=== PATIENT | male | born 1960 | race Caucasian/White ===

== ENCOUNTER 2025-05-20 00:29 | Inpatient (IN) | payer MEDICARE, OTHER ==
[~2025-05-20] VITALS: Ht 177.8 cm; Wt 113.7 kg
[2025-05-20 00:49] LABS: PLATELET COUNT (AUTO) 149 K/uL (152-348); RED BLOOD CELL COUNT(AUTO) 4.64 MIL/uL (4.06-5.63); RED CELL DISTRIBUTION WIDTH 15.6 % (12.1-16.2); WHITE BLOOD COUNT (AUTO) 6.2 K/uL (3.6-10.2)
[2025-05-20] MEDS ORDERED: NA P133E RC (00:53)
[2025-05-20] MEDS ORDERED: MULT-213 PO (00:53)
[2025-05-20] MEDS ORDERED: SACU1TAB PO (00:53)
[2025-05-20] MEDS ORDERED: EMPA10TA PO (00:53)
[2025-05-20] MEDS ORDERED: ASCO500C18 PO (00:53)
[2025-05-20] MEDS ORDERED: GUAI600T31 PO (00:53)
[2025-05-20] MEDS ORDERED: DICL100G31 TP (00:53)
[2025-05-20] MEDS ORDERED: CARV3.122 PO (00:53)
[2025-05-20] MEDS ORDERED: ACET-3117 PO (00:53)
[2025-05-20] MEDS ORDERED: BISA10SU61 RC (00:53)
[2025-05-20] MEDS ORDERED: FURO40TA5 PO (00:53)
[2025-05-20] MEDS ORDERED: ONDA-104 PO (00:53)
[2025-05-20] MEDS ORDERED: APIX5TAB PO (00:53)
[2025-05-20] MEDS ORDERED: MAGN400O6 PO (00:53)
[2025-05-20] MEDS ORDERED: DOCU100C36 PO (00:53)
[2025-05-20] MEDS ORDERED: IPRA3AMP22 IH (00:53)
[2025-05-20] MEDS ORDERED: LIDO1ADH82 TP (00:53)
[2025-05-20 01:02] LABS: CREATININE 1.2 mg/dL (0.6-1.3); SODIUM SERUM 142.0 mmol/L (136-145); UREA NITROGEN, BLOOD 20.0 mg/dL (7-18)
[2025-05-20 01:07] LABS: ASPARTATE AMINOTRANSFERASE 19.0 U/L (15-37); TOTAL PROTEIN, SERUM 7.6 g/dL (6.4-8.2)
[2025-05-20 01:33] LABS: *BILIRUBIN,URIN NEGATIVE (NEGATIVE); *BLOOD, URINE NEGATIVE (NEGATIVE); *CLARITY,URINE CLEAR (CLEAR); *COLOR,URINE YELLOW (YELLOW); *KETONES,URINE TRACE (NEGATIVE); *PROTEIN,URINE 2+ (NEGATIVE); *UROBILINOGEN,URINE 1.0 E.U./dl (NORMAL); LEUKOCYTE ESTERASE ,URINE NEGATIVE (NEGATIVE); NITRITE, URINE NEGATIVE (NEGATIVE); UGLUCOSE 2+ (NEGATIVE)
[2025-05-20 01:45] LABS: *AMPHETAMINE, URINE NEGATIVE (NEGATIVE); *BARBITURATE, URINE NEGATIVE (NEGATIVE); *BENZODIAZEPINE, URINE NEGATIVE (NEGATIVE); *CANNABINOID, URINE NEGATIVE (NEGATIVE); *COCCAINE, URINE NEGATIVE (NEGATIVE); *OPIATE, URINE NEGATIVE (NEGATIVE); *PHENCYCLIDINE SCREEN,URINE NEGATIVE (NEGATIVE); FENTANYL, URINE NEGATIVE (NEGATIVE)
[2025-05-20 01:52] LABS: SQUAMOUS EPITHELIAL CELL,UR FEW /HPF (NONE SEEN)
[2025-05-20] MEDS: POTASSIUM CHLORIDE 20 MEQ TAB.PRT.SR PO ONE (04:40)
[2025-05-20] MEDS ORDERED: POTASSIUM CHLORIDE 20 MEQ TAB.PRT.SR ONE ×2 (04:40→07:32)
[2025-05-20] MEDS ORDERED: MAGNESIUM SULFATE/D5W 100 ML ONE (07:31)
[2025-05-20] MEDS ORDERED: FUROSEMIDE 40 MG/4 ML VIAL ONE (07:31)
[2025-05-20] MEDS ORDERED: POTASSIUM BICARBONATE/CIT AC 25 MEQ TABLET.EFF ONE (07:32)
[2025-05-20] MEDS: FUROSEMIDE 40 MG/4 ML VIAL IV ONE (07:55)
[2025-05-20] MEDS: POTASSIUM BICARBONATE/CIT AC 25 MEQ TABLET.EFF PO ONE (07:55)
[2025-05-20] MEDS: MAGNESIUM SULFATE/D5W 100 ML IV SCH (07:55)
[2025-05-20] MEDS ORDERED: ONDANSETRON 4 MG/2 ML VIAL ONE (08:01)
[2025-05-20] MEDS ORDERED: MORPHINE SULFATE 2 MG/1 ML DISP.SYRIN ONE (08:02)
[2025-05-20] MEDS ORDERED: ASPIRIN 325 MG TABLET ONE (08:02)
[2025-05-20] MEDS: ASPIRIN 325 MG TABLET PO ONE (08:05)
[2025-05-20] MEDS: MORPHINE SULFATE 2 MG/1 ML DISP.SYRIN IV ONE (08:05)
[2025-05-20] MEDS: ONDANSETRON 4 MG/2 ML VIAL IV ONE (08:05)
[2025-05-20] MEDS ORDERED: MAGNESIUM SULFATE/D5W 200 ML ONE (08:18)
[2025-05-20 08:30] VITALS: BP 129/103
[2025-05-20] MEDS ORDERED: NITROGLYCERIN OINT 1 GM PACKET TP ONE (08:40)
[2025-05-20] MEDS: NITROGLYCERIN OINT 1 GM PACKET TP ONE (08:51)
[2025-05-20] MEDS: FUROSEMIDE 40 MG/4 ML VIAL IV SCH (09:45)
[2025-05-20] MEDS ORDERED: ENOXAPARIN SODIUM 40 MG/0.4 ML DISP.SYRIN SQ SCH (09:45)
[2025-05-20] MEDS ORDERED: BISACODYL 10 MG SUPP.RECT RC PRN (09:45)
[2025-05-20] MEDS ORDERED: ONDANSETRON 4 MG/2 ML VIAL IV PRN ×2 (09:45→10:00)
[2025-05-20 11:54] VITALS: BP 97/63; TEMP 97.9; O2SAT 95
[2025-05-20] MEDS: SACUBITRIL/VALSARTAN 24 MG-26 TABLET PO SCH (12:30)
[2025-05-20] MEDS: CARVEDILOL 3.125 MG TABLET PO SCH (12:30)
[2025-05-20] MEDS: EMPAGLIFLOZIN 10 MG TABLET PO SCH (13:25)
[2025-05-20] MEDS: DOCUSATE SODIUM 100 MG CAPSULE PO SCH (13:25)
[2025-05-20] MEDS: MULTIVITAMINS,THERAPEUTIC TABLET PO SCH (13:25)
[2025-05-20] MEDS: ASCORBIC ACID 500 MG TABLET PO SCH (13:25)
[2025-05-20] MEDS: APIXABAN 5 MG TABLET PO SCH (13:28)
[2025-05-20 16:00] VITALS: BP 115/74; TEMP 97.8; O2SAT 94
[2025-05-20 19:45] VITALS: BP 102/81; TEMP 97.5; O2SAT 95
[2025-05-20] MEDS: MORPHINE SULFATE 2 MG/1 ML DISP.SYRIN IV PRN (20:56)
[2025-05-21] VITALS (7 sets, daily range): BP systolic 102–121; BP diastolic 65–89; TEMP 97.3–98.6; O2SAT 93–96
[2025-05-21 06:48] LABS: PLATELET COUNT (AUTO) 155 K/uL (152-348); RED BLOOD CELL COUNT(AUTO) 4.45 MIL/uL (4.06-5.63); RED CELL DISTRIBUTION WIDTH 15.6 % (12.1-16.2); WHITE BLOOD COUNT (AUTO) 5.8 K/uL (3.6-10.2)
[2025-05-21 07:00] LABS: CREATININE 1.1 mg/dL (0.6-1.3); SODIUM SERUM 142.0 mmol/L (136-145); UREA NITROGEN, BLOOD 18.0 mg/dL (7-18)
[2025-05-21] MEDS ORDERED: POTASSIUM CHLORIDE 20 MEQ POWDER PACKET GT ONE (08:30)
[2025-05-21] MEDS: POTASSIUM CHLORIDE 20 MEQ TAB.PRT.SR PO ONE (08:44)
[2025-05-22] VITALS (8 sets, daily range): BP systolic 106–127; BP diastolic 70–97; TEMP 97.5–98; O2SAT 93–99
[2025-05-22] MEDS: SPIRONOLACTONE 25 MG TABLET PO SCH (08:36)
[2025-05-22] MEDS: FUROSEMIDE 40 MG/4 ML VIAL IV SCH (08:45)
[2025-05-22] MEDS: ACETAMINOPHEN 325 MG TABLET PO PRN (16:29)
[2025-05-23 05:00] VITALS: BP 128/98; TEMP 97.6
[2025-05-23 08:00] VITALS: BP 137/100; TEMP 97.7; O2SAT 94
[2025-05-23] MEDS ORDERED: SPIR25TA PO (09:46)
[2025-05-23 10:20] LABS: PLATELET COUNT (AUTO) 169 K/uL (152-348); RED BLOOD CELL COUNT(AUTO) 4.80 MIL/uL (4.06-5.63); RED CELL DISTRIBUTION WIDTH 15.9 % (12.1-16.2); WHITE BLOOD COUNT (AUTO) 6.2 K/uL (3.6-10.2)
[2025-05-23 10:29] LABS: CREATININE 1.2 mg/dL (0.6-1.3); SODIUM SERUM 143.0 mmol/L (136-145); UREA NITROGEN, BLOOD 24.0 mg/dL (7-18)
[2025-05-23 11:30] VITALS: BP 138/71; TEMP 97.8; O2SAT 95
[2025-05-23 15:57] VITALS: BP 133/90; TEMP 97.7; O2SAT 96
[2025-05-23] MEDS ORDERED: BUME2TAB7 PO (22:52)
[2025-05-23 23:45] VITALS: BP 123/89; TEMP 98.2; O2SAT 93
[2025-05-24 07:26] VITALS: BP 129/91; TEMP 97.7; O2SAT 96
[2025-05-24] MEDS: BUMETANIDE 1 MG TABLET PO SCH (08:29)
[2025-05-24 10:48] VITALS: BP 111/71; TEMP 98.3; O2SAT 100
[2025-05-24 15:38] VITALS: BP 110/81; TEMP 97.6; O2SAT 96
[2025-05-24 20:42] VITALS: BP 132/104; TEMP 97.4; O2SAT 97
[2025-05-24] MEDS: GUAIFENESIN/DEXTROMETHORPHAN 5 ML UDC PO PRN (21:13)
[2025-05-25 00:07] VITALS: BP 125/87; TEMP 97.8; O2SAT 95
[2025-05-25 04:06] VITALS: BP 109/84; TEMP 98.5; O2SAT 91
[2025-05-25 07:17] VITALS: BP 115/82; TEMP 98.4; O2SAT 94
[2025-05-25 11:00] VITALS: BP 107/74; TEMP 98.6; O2SAT 94
[2025-05-25 15:12] VITALS: BP 106/79; TEMP 98.4; O2SAT 95
[2025-05-25 19:00] VITALS: BP 107/58; TEMP 97.8; O2SAT 93
[2025-05-26] VITALS: BP 125/92; TEMP 97.6; O2SAT 93
[2025-05-26 04:00] VITALS: BP 138/101; TEMP 97.7; O2SAT 93
[2025-05-26 07:30] VITALS: BP 118/82; TEMP 98.3; O2SAT 94
[2025-05-26 08:29] LABS: *OCCULT BLOOD STOOL NEGATIVE (NEGATIVE)
[2025-05-26 08:38] VITALS: BP 118/72
== END 2025-05-26 08:45 | disposition left against medical advice (07) | DRG 292 ==
LOC: ER 00:44 → TELE3 09:45
PROVIDERS: ADMIT Nurse Practitioner Acute Care; ATTEND Nurse Practitioner Acute Care
DX: I50.23 Acute on chronic systolic (congestive) heart failure (principal); D68.59 Other primary thrombophilia; I42.0 Dilated cardiomyopathy; I42.7 Cardiomyopathy due to drug and external agent; T40.5X1S Poisoning by cocaine, accidental (unintentional), sequela; E87.6 Hypokalemia; E66.9 Obesity, unspecified; Z75.1 Person awaiting admission to adequate facility elsewhere; Z71.3 Dietary counseling and surveillance; Z68.36 Body mass index [BMI] 36.0-36.9, adult; Z79.84 Long term (current) use of oral hypoglycemic drugs; Z79.899 Other long term (current) drug therapy; Z79.01 Long term (current) use of anticoagulants; R60.0 Localized edema
CPT/HCPCS: 36415; 71045; 83735; 84100; 84484; 85025; 87086; 93307; A4663; G0378; J0360; J1938; J2270; J2405; J3475